=== PATIENT | male | born 1985 | race African-American/Black ===

== ENCOUNTER 2018-05-18 08:15 | Emergency (ER) | payer OTHER ==
[~2018-05-18] VITALS: Ht 188 cm; Wt 100.0 kg
[2018-05-18 09:04] LABS: HEMATOCRIT 44.7 % (39.0-50.0); HEMOGLOBIN 14.7 g/dl (14.0-18.0); IMMATURE GRANULOCYTES 0.3 % (0.0-5.0); MEAN CELL VOLUME 87.1 fL CALC (80.0-100.0); MEAN CORPUSCULAR HGB 28.7 pG CALC (26.0-32.0); MEAN CORPUSCULAR HGB CONC 32.9 g/L CALC (32.0-36.0); NEUT# 7.02 thou/uL (1.82-7.42); RED BLOOD COUNT 5.13 mill/uL (4.70-6.10); RED CELL DISTRI WIDTH 12.7 % (11.5-15.5)
[2018-05-18 09:16] LABS: ALBUMIN 4.6 g/dL (3.2-5.0); ALKALINE PHOSPHATASE 60 u/l (38-126); AMYLASE 80 u/l (30-110); ANION GAP 15 (6-22 (CALC)); BILIRUBIN, TOTAL 1.7 mg/dL (0.0-1.4); BUN 12 mg/dL (9-20); BUN/CREATININE RATIO 13 (12-20 (CALC)); CARBON DIOXIDE 29 mmol/l (22-30); CHLORIDE 97 mmol/l (95-108); GFR > 60 ML/MIN (>=60 (CALC)); GFR FOR AFR.AMER. > 60 ML/MIN (>=60 (CALC)); LIPASE 63 u/l (23-300); POTASSIUM 3.8 mmol/l (3.5-5.1); SGOT/AST 56 u/l (17-59); SODIUM 137 mmol/l (137-146); TOTAL PROTEIN 7.8 g/dL (6.3-8.2)
[2018-05-18 09:50] LABS: URINE BLOOD DIPSTICK SMALL (NEGATIVE); URINE COLOR YELLOW; URINE GLUCOSE - DIPSTICK NEGATIVE (NEGATIVE); URINE KETONE >=80 mg/dL (NEGATIVE); URINE LEUK ESTERASE NEGATIVE (NEGATIVE); URINE NITRITE - DIPSTICK NEGATIVE (Negative); URINE PROTEIN - DIPSTICK TRACE mg/dL (NEG-TRACE); URINE SPECIFIC GRAVITY >=1.030
[2018-05-18 09:51] LABS: URINE BILIRUBIN - DIPSTICK SMALL (NEGATIVE)
[2018-05-18 09:52] LABS: URINE MUCUS FEW hpf (NONE-FEW)
[2018-05-18] MEDS ORDERED: ZOFRAN ODT4 MG PO (11:14)
[2018-05-18] MEDS ORDERED: PREVACID30 M3 PO (11:14)
[2018-05-18] MEDS ORDERED: CIPROFLOXACN750 MG PO (11:14)
[2018-05-18 11:20] VITALS: BP 143/95
== END 2018-05-18 11:40 | disposition home or self-care (01) | DRG 392 ==
LOC: ED 08:15
PROVIDERS: Emergency Medicine
DX: A08.4 Viral intestinal infection, unspecified (principal); N30.90 Cystitis, unspecified without hematuria
CPT/HCPCS: Q9967

== ENCOUNTER 2019-04-20 | Emergency (ER) | payer OTHER ==
[~2019-04-20] MED LIST: CIPROFLOXACN750 MG PO; PREVACID30 M3 PO; ZOFRAN ODT4 MG PO
[2019-04-20] MEDS ORDERED: FLEXERIL PO (12:26)
== END 2019-04-20 12:35 | disposition home or self-care (01) | DRG 552 ==
DX: S16.1XXA Strain of muscle, fascia and tendon at neck level, initial encounter (principal); S29.012A Strain of muscle and tendon of back wall of thorax, initial encounter; S39.012A Strain of muscle, fascia and tendon of lower back, initial encounter; W18.30XA Fall on same level, unspecified, initial encounter; Y93.67 Activity, basketball

== ENCOUNTER 2019-11-16 16:59 | Emergency (ER) | payer OTHER ==
[~2019-11-16] VITALS: Ht 188 cm; Wt 109.0 kg
[~2019-11-16 16:59] MED LIST changes: +FLEXERIL PO
[2019-11-16 18:02] VITALS: BP 137/69
== END 2019-11-16 18:02 | disposition home or self-care (01) | DRG 563 ==
LOC: ED 16:59
DX: S39.012A Strain of muscle, fascia and tendon of lower back, initial encounter (principal); M54.42 Lumbago with sciatica, left side; X58.XXXA Exposure to other specified factors, initial encounter

== ENCOUNTER 2022-06-15 07:34 | Emergency (ER) | payer OTHER ==
[~2022-06-15] VITALS: Ht 188 cm; Wt 102.0 kg
[2022-06-15 07:41] VITALS: BP 107/72
[2022-06-15 07:58] VITALS: BP 124/80
[2022-06-15 08:00] VITALS: BP 118/76
[2022-06-15 08:02] LABS: BASO% 0.2 % (0-3); EOS% 1.2 % (0-8); HEMATOCRIT 44.7 % (39.0-50.0); HEMOGLOBIN 14.3 g/dl (14.0-18.0); IMMATURE GRANULOCYTES 0.2 % (0.0-5.0); MEAN CORPUSCULAR HGB 28.1 pG CALC (26.0-32.0); MONO% 7.1 % (2-13); NEUT# 4.86 thou/uL (1.82-7.42); NEUT% 82.3 % (42-76); RED BLOOD COUNT 5.08 mill/uL (4.70-6.10); RED CELL DISTRI WIDTH 12.4 % (11.5-15.5)
[2022-06-15 08:05] LABS: GFR FOR AFR.AMER. > 60 ML/MIN (>=60 (CALC)); GFR OTHER RACES > 60 ML/MIN (>=60 (CALC))
[2022-06-15 08:23] LABS: ALBUMIN 4.4 g/dL (3.2-5.0); ALKALINE PHOSPHATASE 68 u/l (38-126); ANION GAP 11 (6-22 (CALC)); BILIRUBIN, TOTAL 1.1 mg/dL (0.2-1.3); BUN 15 mg/dL (9-20); BUN/CREATININE RATIO 14 (12-20 (CALC)); CARBON DIOXIDE 29 mmol/l (22-30); CHLORIDE 105 mmol/l (95-108); CREATININE 1.1 mg/dL (0.7-1.3); GFR FOR AFR.AMER. > 60 ML/MIN (>=60 (CALC)); GFR OTHER RACES > 60 ML/MIN (>=60 (CALC)); LIPASE 57 u/l (23-300); POTASSIUM 4.3 mmol/l (3.5-5.1); SGOT/AST 24 u/l (17-59); SODIUM 141 mmol/l (137-146); TOTAL PROTEIN 7.3 g/dL (6.3-8.2)
[2022-06-15 09:25] LABS: URINE BILIRUBIN - DIPSTICK NEGATIVE (NEGATIVE); URINE BLOOD DIPSTICK NEGATIVE (NEGATIVE); URINE COLOR YELLOW; URINE GLUCOSE - DIPSTICK NEGATIVE (NEGATIVE); URINE KETONE NEGATIVE (NEGATIVE); URINE LEUK ESTERASE NEGATIVE (NEGATIVE); URINE PH 8.5 (4.5-8.0); URINE PROTEIN - DIPSTICK TRACE mg/dL (NEG-TRACE); URINE SPECIFIC GRAVITY 1.015
[2022-06-15 09:26] LABS: URINE NITRITE - DIPSTICK NEGATIVE (Negative)
[2022-06-15] MEDS ORDERED: ZOFRAN4 MG/TAB PO ×2 (09:36→14:50)
[2022-06-15 09:46] VITALS: BP 118/76
== END 2022-06-15 10:01 | disposition home or self-care (01) | DRG 392 ==
LOC: ED 07:34
PROVIDERS: Family Medicine
DX: R10.9 Unspecified abdominal pain (principal)
CPT/HCPCS: Q9967

== ENCOUNTER 2022-10-24 13:52 | Emergency (ER) | payer OTHER ==
[~2022-10-24] VITALS: Ht 188 cm; Wt 103.0 kg
[2022-10-24] VITALS (11 sets, daily range): BP systolic 92–132; BP diastolic 47–74
[~2022-10-24 13:52] MED LIST changes: +ZOFRAN4 MG/TAB PO
[2022-10-24 14:14] LABS: BASO% 0.2 % (0-3); EOS% 0.6 % (0-8); HEMATOCRIT 42.5 % (39.0-50.0); HEMOGLOBIN 13.9 g/dl (14.0-18.0); IMMATURE GRANULOCYTES 0.4 % (0.0-5.0); LYMPH% 5.4 % (15-41); MEAN CELL VOLUME 86.6 fL CALC (80.0-100.0); MEAN CORPUSCULAR HGB 28.3 pG CALC (26.0-32.0); MEAN CORPUSCULAR HGB CONC 32.7 g/dL CAL (32.0-36.0); MONO% 13.5 % (2-13); NEUT# 3.73 thou/uL (1.82-7.42); NEUT% 79.9 % (42-76); RED BLOOD COUNT 4.91 mill/uL (4.70-6.10); RED CELL DISTRI WIDTH 12.2 % (11.5-15.5)
[2022-10-24 14:29] LABS: ALBUMIN 4.4 g/dL (3.2-5.0); ALKALINE PHOSPHATASE 50 u/l (38-126); ANION GAP 11 (6-22 (CALC)); BILIRUBIN, TOTAL 1.5 mg/dL (0.2-1.3); BUN 9 mg/dL (9-20); BUN/CREATININE RATIO 7 (12-20 (CALC)); CARBON DIOXIDE 25 mmol/l (22-30); CHLORIDE 105 mmol/l (95-108); CREATININE 1.2 mg/dL (0.7-1.3); GFR FOR AFR.AMER. > 60 ML/MIN (>=60 (CALC)); GFR OTHER RACES > 60 ML/MIN (>=60 (CALC)); POTASSIUM 3.7 mmol/l (3.5-5.1); SGOT/AST 25 u/l (17-59); SODIUM 137 mmol/l (137-146); TOTAL PROTEIN 7.7 g/dL (6.3-8.2)
[2022-10-24] MEDS ORDERED: NAPROXEN500 MG PO (14:48)
[2022-10-25] MEDS ORDERED: HALOPERIDOL2 MG PO (17:09)
[2022-10-25] MEDS ORDERED: PROTONIX40 M2 PO (17:09)
== END 2022-10-24 16:38 | disposition home or self-care (01) | DRG 179 ==
LOC: ED 13:52
PROVIDERS: Family Medicine
DX: U07.1 COVID-19 (principal); R52 Pain, unspecified; R11.2 Nausea with vomiting, unspecified; R09.89 Other specified symptoms and signs involving the circulatory and respiratory systems; R05.9 Cough, unspecified

== ENCOUNTER 2022-10-25 12:16 | Emergency (ER) | payer OTHER ==
[2022-10-25] VITALS (15 sets, daily range): BP systolic 116–191; BP diastolic 74–133
[~2022-10-25] VITALS: Ht 188 cm; Wt 99.7 kg
[~2022-10-25 12:16] MED LIST changes: +NAPROXEN500 MG PO
[2022-10-25 13:18] LABS: BASO% 0.3 % (0-3); HEMATOCRIT 41.9 % (39.0-50.0); HEMOGLOBIN 13.8 g/dl (14.0-18.0); IMMATURE GRANULOCYTES 0.3 % (0.0-5.0); LYMPH% 19.5 % (15-41); MEAN CELL VOLUME 86.6 fL CALC (80.0-100.0); MEAN CORPUSCULAR HGB 28.5 pG CALC (26.0-32.0); MEAN CORPUSCULAR HGB CONC 32.9 g/dL CAL (32.0-36.0); MONO% 17.7 % (2-13); NEUT# 2.08 thou/uL (1.82-7.42); NEUT% 62.2 % (42-76); RED BLOOD COUNT 4.84 mill/uL (4.70-6.10); RED CELL DISTRI WIDTH 12.2 % (11.5-15.5)
[2022-10-25 13:33] LABS: ALBUMIN 4.2 g/dL (3.2-5.0); ALKALINE PHOSPHATASE 50 u/l (38-126); ANION GAP 11 (6-22 (CALC)); BILIRUBIN, TOTAL 0.9 mg/dL (0.2-1.3); BUN 11 mg/dL (9-20); BUN/CREATININE RATIO 11 (12-20 (CALC)); CARBON DIOXIDE 28 mmol/l (22-30); CHLORIDE 104 mmol/l (95-108); GFR FOR AFR.AMER. > 60 ML/MIN (>=60 (CALC)); GFR OTHER RACES > 60 ML/MIN (>=60 (CALC)); LIPASE 46 u/l (23-300); POTASSIUM 4.1 mmol/l (3.5-5.1); SGOT/AST 25 u/l (17-59); SODIUM 138 mmol/l (137-146); TOTAL PROTEIN 7.2 g/dL (6.3-8.2)
[2022-10-25 15:51] LABS: URINE BILIRUBIN - DIPSTICK NEGATIVE (NEGATIVE); URINE BLOOD DIPSTICK NEGATIVE (NEGATIVE); URINE COLOR YELLOW; URINE GLUCOSE - DIPSTICK NEGATIVE (NEGATIVE); URINE KETONE 15 mg/dL (NEGATIVE); URINE LEUK ESTERASE NEGATIVE (NEGATIVE); URINE NITRITE - DIPSTICK NEGATIVE (Negative); URINE PROTEIN - DIPSTICK NEGATIVE (NEG-TRACE); URINE SPECIFIC GRAVITY 1.025
[2022-10-25] MEDS ORDERED: PROTONIX40 M2 PO (17:09)
[2022-10-25] MEDS ORDERED: HALOPERIDOL2 MG PO (17:09)
== END 2022-10-25 18:05 | disposition home or self-care (01) | DRG 391 ==
LOC: ED 12:16
PROVIDERS: Nurse Practitioner
DX: R10.11 Right upper quadrant pain (principal); R11.2 Nausea with vomiting, unspecified; K21.9 Gastro-esophageal reflux disease without esophagitis; U07.1 COVID-19
CPT/HCPCS: S0164

== ENCOUNTER 2022-10-27 04:09 | Emergency (ER) | payer OTHER ==
[~2022-10-27] VITALS: Ht 188 cm; Wt 108.0 kg
[2022-10-27] VITALS (10 sets, daily range): BP systolic 127–161; BP diastolic 70–99
[~2022-10-27 04:09] MED LIST changes: +HALOPERIDOL2 MG PO; +PROTONIX40 M2 PO
[2022-10-27 05:32] LABS: ALBUMIN 4.3 g/dL (3.2-5.0); ALKALINE PHOSPHATASE 46 u/l (38-126); AMYLASE 125 u/l (30-110); ANION GAP 9 (6-22 (CALC)); BUN 13 mg/dL (9-20); BUN/CREATININE RATIO 13 (12-20 (CALC)); CARBON DIOXIDE 33 mmol/l (22-30); CHLORIDE 98 mmol/l (95-108); GFR FOR AFR.AMER. > 60 ML/MIN (>=60 (CALC)); GFR OTHER RACES > 60 ML/MIN (>=60 (CALC)); LIPASE 56 u/l (23-300); POTASSIUM 3.6 mmol/l (3.5-5.1); SGOT/AST 35 u/l (17-59); SODIUM 136 mmol/l (137-146); TOTAL PROTEIN 7.8 g/dL (6.3-8.2)
[2022-10-27 05:34] LABS: BASO% 0.5 % (0-3); HEMATOCRIT 44.2 % (39.0-50.0); HEMOGLOBIN 14.8 g/dl (14.0-18.0); IMMATURE GRANULOCYTES 0.2 % (0.0-5.0); LYMPH% 35.1 % (15-41); MEAN CORPUSCULAR HGB 28.8 pG CALC (26.0-32.0); MEAN CORPUSCULAR HGB CONC 33.5 g/dL CAL (32.0-36.0); MONO% 12.9 % (2-13); NEUT# 2.18 thou/uL (1.82-7.42); NEUT% 51.3 % (42-76); RED BLOOD COUNT 5.14 mill/uL (4.70-6.10); RED CELL DISTRI WIDTH 11.7 % (11.5-15.5)
[2022-10-27 05:38] LABS: BILIRUBIN, TOTAL 1.3 mg/dL (0.2-1.3)
[2022-10-27 05:41] LABS: URINE COLOR DK. YELLOW
[2022-10-27 05:42] LABS: URINE BLOOD DIPSTICK NEGATIVE (NEGATIVE); URINE GLUCOSE - DIPSTICK NEGATIVE (NEGATIVE); URINE KETONE 15 mg/dL (NEGATIVE); URINE LEUK ESTERASE NEGATIVE (NEGATIVE); URINE NITRITE - DIPSTICK NEGATIVE (Negative); URINE PROTEIN - DIPSTICK 100 mg/dL (NEG-TRACE); URINE SPECIFIC GRAVITY 1.025
[2022-10-27 05:54] LABS: URINE RBC 0-2 RBC/hpf (0-5)
[2022-10-27 05:55] LABS: URINE BACTERIA FEW hpf; URINE EPITHELIAL CELLS FEW EPI/hpf (0-FEW); URINE WBC 0-2 WBC/hpf (0-5)
[2022-10-27] MEDS ORDERED: ONDANSETRON4 MG PO (06:57)
[2022-10-27] MEDS ORDERED: PREVACID30 M1 PO (06:57)
[2022-10-27] MEDS ORDERED: PAXLOVID PO (18:51)
== END 2022-10-27 07:17 | disposition home or self-care (01) | DRG 391 ==
LOC: ED 04:09
PROVIDERS: Emergency Medicine
DX: R11.2 Nausea with vomiting, unspecified (principal); R10.11 Right upper quadrant pain; U07.1 COVID-19
CPT/HCPCS: Q9967; S0164